=== PATIENT | male | born 1995 | race Caucasian/White ===

== ENCOUNTER 2019-01-08 23:09 | Emergency (ER) | payer BC ==
[~2019-01-08] VITALS: Ht 180.3 cm; Wt 102.1 kg
[~2019-01-08 23:09] MED LIST: ACETAMINOPHEN-1 EAC1 PO; AFRIN15 ML NS; AUGMENTIN 875875 MG PO; CIPROFLOXIN HC2.5 M1 OPHTHALMIC; HYDROCODON-ACE1 EAC7 PO; MEDROLDOSEPACK PO; NOHOMEMEDICATIONS; NORCO 5-325 TA1 EACH; PENICILLIN VK500 M1 PO
[2019-01-09 01:25] VITALS: BP 148/79
== END 2019-01-09 01:25 | disposition home or self-care (01) ==
LOC: M.ERS 23:09
DX: S61.211A Laceration without foreign body of left index finger without damage to nail, initial encounter (principal); Z90.49 Acquired absence of other specified parts of digestive tract; W26.0XXA Contact with knife, initial encounter; Y93.89 Activity, other specified; Y92.89 Other specified places as the place of occurrence of the external cause; Y99.8 Other external cause status